=== PATIENT | male | born 1965 | race Caucasian/White ===

== ENCOUNTER 2023-07-04 17:00 | Outpatient (CLI) | payer SELFPAY | END 2023-07-04 17:01 | disposition home or self-care (01) | LOC: SLEEPLAB 17:00 | PROVIDERS: ATTEND Family Medicine | DX: G47.33 Obstructive sleep apnea (adult) (pediatric) (principal); G47.10 Hypersomnia, unspecified; G47.00 Insomnia, unspecified; E66.9 Obesity, unspecified; R06.83 Snoring; R40.0 Somnolence; R53.83 Other fatigue; Z68.41 Body mass index [BMI] 40.0-44.9, adult | CPT/HCPCS: 95800 ==